=== PATIENT | male | born 2000 | race Two or more races ===

== ENCOUNTER 2021-11-11 18:37 | Emergency (ER) | payer OTHER ==
[2021-11-11 19:17] LABS: BASOPHILS # (AUTO) 0.1 10^3/uL (0.0-0.1); BASOPHILS % (AUTO) 0.8 %; EOSINOPHILS # (AUTO) 0.3 10^3/uL (0.0-0.7); EOSINOPHILS % (AUTO) 5.3 %; HCT - HEMATOCRIT 41.8 % (42.0-52.0); HGB - HEMOGLOBIN 14.6 g/dL (14.0-18.0); LYMPHOCYTES # (AUTO) 2.9 10^3/uL (1.5-3.5); LYMPHOCYTES % (AUTO) 47.4 %; MEAN CORPUSCULAR HEMOGLOBIN 31.2 pg (27.0-31.0); MEAN CORPUSCULAR HGB CONC 34.9 g/dL (32.0-36.0); MEAN CORPUSCULAR VOLUME 89.3 fL (80.0-94.0); MEAN PLATELET VOLUME 9.1 fL (7.4-11.4); MONOCYTES # (AUTO) 0.6 10^3/uL (0.0-1.0); MONOCYTES % (AUTO) 9.1 %; NEUTROPHILS # (AUTO) 2.3 10^3/uL (1.5-6.6); NEUTROPHILS % (AUTO) 37.2 %; PLT - PLATELET COUNT 309 10^3/uL (130-450); RED BLOOD COUNT 4.68 10^6/uL (4.70-6.10); RED CELL DISTRIBUTION WIDTH 12.3 % (12.0-15.0); WHITE BLOOD COUNT 6.2 x10^3/uL (4.8-10.8)
[2021-11-11 19:19] LABS: MUDS CUTOFF CONCENTRATIONS CUTOFF CONC BELOW:
[2021-11-11 19:21] LABS: BILIRUBIN,URINE NEGATIVE (NEGATIVE); GLUCOSE, URINE (UA) NEGATIVE (NEGATIVE); KETONES,URINE (UA) 15 mg/dL (NEGATIVE); LEUKOCYTE ESTERASE, URINE NEGATIVE (NEGATIVE); NITRITE,URINE NEGATIVE (NEGATIVE); OCCULT BLOOD,URINE NEGATIVE (NEGATIVE); PROTEIN,URINE TRACE mg/dL (NEGATIVE); UROBILINOGEN,URINE 0.2 (NORMAL) E.U./dL (NORMAL)
--- NOTE | 2021-11-11 19:26 | ED Physician Documentation ---
PD HPI MHE - Stated complaint Stated Complaint: SI - Chief complaint Chief Complaint: MHE - History obtained from History obtained from: Patient, Family - History of Present Illness Primary symptom: Suicidal ideation, Depression Pain level max: 0 Pain level now: 0 Contributing factors: Work - Additional information Additional information: Patient is a 21-year-old male brought into the emergency department by his . He states that he has been dealing with depression for many years. Has been on Prozac but did not feel like it helped so stopped it on his own. He had been seeing a counselor but did not feel like that helped either so quit going. He states that he recently failed his physical fitness test with the [employer]. He states that he feels he is going to fail his next physical fitness test as well. He states he is also going to fail increasing rank in the [employer]. He states he has been depressed, vague suicidal ideation, no plan. He states that he would not harm himself as he has a family that depends on him. Denies any alcohol or drug use. Patient is active duty [employer] Patient has never been hospitalized for psychiatric care. Patient has no history of suicide attempts Review of Systems Ten Systems: 10 systems reviewed and negative Constitutional: denies: Fever, Chills Nose: denies: Rhinorrhea / runny nose, Congestion Respiratory: denies: Cough GI: denies: Nausea, Vomiting, Diarrhea Skin: denies: Rash Musculoskeletal: reports: Back pain (Chronic, unchanged. No loss of bowel or bladder control.). denies: Neck pain Neurologic: denies: Headache PD PAST MEDICAL HISTORY - Past Medical History Past Medical History: Yes Psych: Depression Musculoskeletal: Other Other Past Medical History: chronic knee pain - Past Surgical History Past Surgical History: No - Allergies Allergies/Adverse Reactions: Allergies Allergy/AdvReac Type Severity Reaction Status Date / Time No Known Drug Allergies Allergy Verified 11/11/21 18:49 - Social History Does the pt smoke?: No Smoking Status: Never smoker Does the pt drink ETOH?: Yes Does the pt have substance abuse?: No - Immunizations Immunizations are current?: Yes PD ED PE NORMAL - Vitals Vital signs reviewed: Yes - General General: Alert and oriented X 3, No acute distress, Well developed/nourished - HEENT HEENT: PERRL, Moist mucous membranes - Neck Neck: Supple, no meningeal sign - Cardiac Cardiac: RRR, Strong equal pulses - Respiratory Respiratory: No respiratory distress, Clear bilaterally - Abdomen Abdomen: Soft, Non tender, Non distended - Derm Derm: Warm and dry - Extremities Extremities: No edema, No calf tenderness / cord - Neuro Neuro: Alert and oriented X 3 - Psych Psych: Normal mood, Normal affect Results - Vitals Vitals: Vital Signs - 24 hr 11/11/21 18:45 Temperature 36.3 C L Heart Rate 82 Respiratory 16 Rate Blood Pressure 140/92 H O2 Saturation 100 Oxygen O2 Source Room air - Labs Labs: Laboratory Tests 11/11/21 11/11/21 11/11/21 19:11 19:11 19:11 WBC 6.2 RBC 4.68 L Hgb 14.6 Hct 41.8 L MCV 89.3 MCH 31.2 H MCHC 34.9 RDW 12.3 Plt Count 309 MPV 9.1 Neut # (Auto) 2.3 Lymph # (Auto) 2.9 [place] # (Auto) 0.6 Eos # (Auto) 0.3 Baso # (Auto) 0.1 Absolute Nucleated RBC 0.00 Nucleated RBC % 0.0 Sodium 137 Potassium 3.8 Chloride 101 Carbon Dioxide 25 Anion Gap 11.0 BUN 16 Creatinine 1.1 Estimated GFR (MDRD) 83 L Glucose 96 Calcium 9.3 Total Bilirubin 0.7 AST 42 ALT 67 H Alkaline Phosphatase 68 Total Protein 7.5 Albumin 4.4 Globulin 3.1 Albumin/Globulin Ratio 1.4 Lipase 33 TSH 2.48 Urine Color Urine Clarity Urine pH Ur Specific [place] Urine Protein Urine Glucose (UA) Urine Ketones Urine Occult Blood Urine Nitrite Urine Bilirubin Urine Urobilinogen Ur Leukocyte Esterase Ur Microscopic Review Urine Culture Comments Salicylates < 6.0 Urine Opiates Screen Ur Oxycodone Screen Urine Methadone Screen Ur Propoxyphene Screen Acetaminophen < 10 L Ur Barbiturates Screen Ur Tricyclics Screen Ur Phencyclidine Scrn Ur Amphetamine Screen U Methamphetamines Scrn U Benzodiazepines Scrn Urine Cocaine Screen U Cannabinoids Screen Ethyl Alcohol < 5.0 SARS-CoV-2 (PCR) 11/11/21 11/11/21 19:15 19:17 WBC RBC Hgb Hct MCV MCH MCHC RDW Plt Count MPV Neut # (Auto) Lymph # (Auto) [place] # (Auto) Eos # (Auto) Baso # (Auto) Absolute Nucleated RBC Nucleated RBC % Sodium Potassium Chloride Carbon Dioxide Anion Gap BUN Creatinine Estimated GFR (MDRD) Glucose Calcium Total Bilirubin AST ALT Alkaline Phosphatase Total Protein Albumin Globulin Albumin/Globulin Ratio Lipase TSH Urine Color YELLOW Urine Clarity CLEAR Urine pH 6.0 Ur Specific [place] >=1.030 H Urine Protein TRACE Urine Glucose (UA) NEGATIVE Urine Ketones 15 H Urine Occult Blood NEGATIVE Urine Nitrite NEGATIVE Urine Bilirubin NEGATIVE Urine Urobilinogen 0.2 (NORMAL) Ur Leukocyte Esterase NEGATIVE Ur Microscopic Review NOT INDICATED Urine Culture Comments NOT INDICATED Salicylates Urine Opiates Screen NEGATIVE Ur Oxycodone Screen NEGATIVE Urine Methadone Screen NEGATIVE Ur Propoxyphene Screen NEGATIVE Acetaminophen Ur Barbiturates Screen NEGATIVE Ur Tricyclics Screen NEGATIVE Ur Phencyclidine Scrn NEGATIVE Ur Amphetamine Screen NEGATIVE U Methamphetamines Scrn NEGATIVE U Benzodiazepines Scrn NEGATIVE Urine Cocaine Screen NEGATIVE U Cannabinoids Screen NEGATIVE Ethyl Alcohol SARS-CoV-2 (PCR) NOT DETECTED PD MEDICAL DECISION MAKING - ED course Complexity details: reviewed results, re-evaluated patient, considered differential, d/w patient, d/w family, d/w hospice consultant ED course: Patient has passive suicidal ideation. No active plan. They would like to speak with telepsychiatry. He is here with his . He does not feel that he would commit suicide but is under stress due to his issues with the [employer]. A telepsychiatry consult was placed when he came to the emergency department, patient will be signed out to the [facility] emergency department physician awaiting the telepsychiatry consult. This document was made in part using voice recognition software. While efforts are made to proofread this document, sound alike and grammatical errors may occur. Departure - Departure Clinical Impression: Depression Qualifiers: Depression Type: unspecified Qualified Code(s): F32.A - Depression, unspecified Condition: Stable
[2021-11-11 19:31] LABS: CLARITY,URINE CLEAR (CLEAR)
[2021-11-11 19:32] LABS: AMPHETAMINE SCREEN,URINE NEGATIVE (NEGATIVE); BARBITURATE SCREEN,UR NEGATIVE (NEGATIVE); BENZODIAZEPINES SCREEN, URINE NEGATIVE (NEGATIVE); COCAINE SCREEN URINE NEGATIVE (NEGATIVE); METHADONE SCREEN, URINE NEGATIVE (NEGATIVE); METHAMPHETAMINES SCREEN, URINE NEGATIVE (NEGATIVE); OPIATE SCREEN, URINE NEGATIVE (NEGATIVE); OXYCODONE SCREEN, URINE NEGATIVE (NEGATIVE); PROPOXYPHENE SCREEN, URINE NEGATIVE (NEGATIVE); THC CANNABINOID SCREEN, URINE NEGATIVE (NEGATIVE); TRICYCLIC ANTIDEPRESSANT,URINE NEGATIVE (NEGATIVE)
[2021-11-11 19:33] LABS: ACETAMINOPHEN < 10 ug/mL (10-30); ALBUMIN 4.4 g/dL (3.2-5.5); ALBUMIN/GLOBULIN RATIO 1.4 (1.0-2.2); ALKALINE PHOSPHATASE 68 IU/L (42-121); ALT ALANINE AMINOTRANSFERASE 67 IU/L (10-60); AST ASPARTATE AMINOTRANSFERASE 42 IU/L (10-42); BILIRUBIN,TOTAL 0.7 mg/dL (0.2-1.0); BUN - BLOOD UREA NITROGEN 16 mg/dL (6-20); CALCIUM 9.3 mg/dL (8.5-10.3); CARBON DIOXIDE - CO2 25 mmol/L (21-32); CHLORIDE 101 mmol/L (101-111); CREATININE 1.1 mg/dL (0.6-1.2); ETOH - ETHANOL < 5.0 mg/dL; GFR - MDRD 83 (>89); GLUCOSE 96 mg/dL (70-100); LIPASE 33 U/L (22-51); POTASSIUM 3.8 mmol/L (3.5-5.0); SALICYLATE < 6.0 mg/dL; SODIUM 137 mmol/L (135-145); TOTAL PROTEIN 7.5 g/dL (6.7-8.2)
--- NOTE | 2021-11-11 23:51 | ED Physician Documentation ---
ED Addendum - Addendum Addendum: Patient signed out to me by Dr. Martinez. Patient is awaiting telepsychiatry evaluation. Dr. Martinez does not feel strongly that the patient needs inpatient psychiatric treatment. Pt has recently been under a lot of stress particularly in regards to his job with the [email or web address] and is concerned he is going to be kicked out. He has had some passive suicidal thoughts It also states that he would not hurt himself because of his family. Patient is requesting discharge. Telepsychiatry is not yet been available to speak to the patient. I spoke to patient and his at the bedside. Patient reports feeling better since being in the emergency department and feels safe returning home. He has no plans to harm himself. Per his there are firearms in the house but she has them locked away. There are no prescription medications. Patient states that he feels motivated to get help because of his . He plans to call the behavioral clinic in the morning for follow-up. He knows that if he feels worse at any time he should call 911, reach out to his or to his command for help. Patient's also states that she feels comfortable with him being at home and is off of work the rest of the week to be with him. Patient has not made any statements to suggest he meets criteria for involuntary detainment. Departure - Departure Disposition: 01 Home, Self Care Clinical Impression: Depression Qualifiers: Depression Type: unspecified Qualified Code(s): F32.A - Depression, unspecified Condition: Stable Instructions: ED Depression Comments: You were evaluated for feelings of depression. You initially agreed to talk to telepsychiatry regarding any recommendations that they may have but would like to go home at this time. Please continue to keep all firearms in any prescription medications are locked away. Please reach out to the [facility] behavioral clinic first thing in the morning for close follow-up. If it anytime you have thoughts of hurting yourself or anyone else or feel unsafe, Please call 911, speak to your or Command to get help. There are many resources that can help you through your current situation. Discharge Date/Time: 11/11/21 23:57
[2021-11-11 23:58] VITALS: BP 132/72
== END 2021-11-11 23:57 | disposition home or self-care (01) ==
LOC: ED 18:37
DX: F32.A Depression, unspecified (principal)
CPT/HCPCS: 36415; 80053; 80306; 80307; 80320; 80329; 81001; 81003; 83690; 84443; 85025; 87086; 99283

== ENCOUNTER 2022-02-21 08:44 | Outpatient (CLI) | payer OTHER ==
--- NOTE | 2022-02-23 09:06 | MRI Report ---
PROCEDURE: BRAIN WO INDICATIONS: MIGRAINE TECHNIQUE: Noncontrast axial T1 spin echo, axial T2 fast spin echo, sagittal and axial FLAIR, coronal T2 fast sp in echo, axial gradient echo, axial diffusion and ADC through the brain. COMPARISON: None. FINDINGS: Image quality: Excellent. CSF Spaces: Basal cisterns are patent. No extra-axial fluid collections. Ventricles are normal in size and shape. Brain: No intracranial masses or hemorrhage. Naranjo/white matter interface is normal. Brainstem appe ars normal. Diffusion-weighted images demonstrate no acute ischemic insult. No chronic ischemic ins ults. Normal intravascular flow voids are present. Skull and face: Calvarium has normal marrow signal. Orbits appear normal. Sinuses: Sinuses demonstrate trace ethmoid mucosal thickening. No fluid levels. IMPRESSION: 1. No acute intracranial process. Reviewed by: Gail Lozano MD on 02/23/2022 9:05 AM PDT Approved by: Gail Lozano MD on 02/23/2022 9:05 AM PDT Station ID: [id number]
== END 2022-02-21 08:45 | disposition home or self-care (01) ==
LOC: DI 08:44
PROVIDERS: ATTEND Physician Assistant
DX: G43.909 Migraine, unspecified, not intractable, without status migrainosus (principal)

== ENCOUNTER 2023-11-09 15:50 | Emergency (ER) | payer OTHER ==
[2023-11-09 17:13] LABS: BASOPHILS % (AUTO) 0.6 %; EOSINOPHILS # (AUTO) 0.7 10^3/uL (0.0-0.7); EOSINOPHILS % (AUTO) 10.2 %; HCT - HEMATOCRIT 44.5 % (42.0-52.0); HGB - HEMOGLOBIN 15.1 g/dL (14.0-18.0); LYMPHOCYTES # (AUTO) 3.1 10^3/uL (1.5-3.5); LYMPHOCYTES % (AUTO) 42.8 %; MEAN CORPUSCULAR HEMOGLOBIN 30.3 pg (27.0-31.0); MEAN CORPUSCULAR HGB CONC 33.9 g/dL (32.0-36.0); MEAN CORPUSCULAR VOLUME 89.2 fL (80.0-94.0); MEAN PLATELET VOLUME 9.1 fL (7.4-11.4); MONOCYTES # (AUTO) 0.6 10^3/uL (0.0-1.0); MONOCYTES % (AUTO) 7.7 %; NEUTROPHILS # (AUTO) 2.8 10^3/uL (1.5-6.6); NEUTROPHILS % (AUTO) 38.6 %; PLT - PLATELET COUNT 357 10^3/uL (130-450); RED BLOOD COUNT 4.99 10^6/uL (4.70-6.10); RED CELL DISTRIBUTION WIDTH 12.5 % (12.0-15.0); WHITE BLOOD COUNT 7.1 x10^3/uL (4.8-10.8)
[2023-11-09 17:28] LABS: ALBUMIN 4.5 g/dL (3.2-5.5); ALBUMIN/GLOBULIN RATIO 1.5 (1.0-2.2); BILIRUBIN,TOTAL 0.5 mg/dL (0.2-1.0); CALCIUM 9.6 mg/dL (8.5-10.3); POTASSIUM 4.2 mmol/L (3.5-4.5); TOTAL PROTEIN 7.5 g/dL (6.4-8.9)
--- NOTE | 2023-11-09 18:47 | ED Physician Documentation ---
PD HPI ABD PAIN - Stated complaint Stated Complaint: - Chief complaint Chief Complaint: Abd Pain - History obtained from History obtained from: Patient - Additional information Additional information: 23-year-old gentleman with history of depression anxiety, active duty in the . For the last 2 days he has had the sensation of incomplete bladder emptying and then when he does go there is nothing in his bladder. He also noted dark urine and some right flank pain. Also mild left testicular pain. No history of renal colic. No concern for STDs. No dysuria. PD PAST MEDICAL HISTORY - Past Medical History Psych: Depression Musculoskeletal: Other - Past Surgical History Past Surgical History: No - Present Medications Home Medications: Ambulatory Orders Medication Instructions Recorded Confirmed Amitriptyline [Elavil] 10 mg PO DAILY PM 11/09/23 11/09/23 Ciprofloxacin HCl [Cipro] 500 mg PO BID #28 tablet 11/09/23 Fluoxetine HCl [Prozac] 20 mg PO DAILY 11/09/23 11/09/23 Oxycodone HCl/Acetaminophen 1 - 2 each PO Q6H PRN #14 tablet 11/09/23 [Percocet 5-325 mg Tablet] SUMAtriptan [Imitrex] 25 mg PO ONCE PRN 11/09/23 11/09/23 buPROPion HCL [Bupropion Xl] 300 mg PO DAILY 11/09/23 11/09/23 - Allergies Allergies/Adverse Reactions: Allergies Allergy/AdvReac Type Severity Reaction Status Date / Time No Known Drug Allergies Allergy Verified 11/09/23 16:19 - Social History Does the pt smoke?: No Smoking Status: Never smoker Does the pt drink ETOH?: Yes Does the pt have substance abuse?: No - Immunizations Immunizations are current?: Yes PD ED PE NORMAL - Vitals Vital signs reviewed: Yes - General General: Alert and oriented X 3, No acute distress - Abdomen Abdomen: Non tender - Male Male : Other (Normal circumcised male genitalia with no testicular tenderness. Normal lie. No masses.) - Back Back: Other (Tender over the right flank) Results - Vitals Vitals: Vital Signs - 24 hr 11/09/23 11/09/23 16:12 19:59 Temperature 36.0 C L 36.7 C Heart Rate 92 95 Respiratory 16 16 Rate Blood Pressure 135/96 H 118/78 O2 Saturation 100 99 Oxygen O2 Source Room air - Labs Labs: Laboratory Tests 11/09/23 11/09/23 11/09/23 16:20 17:09 17:09 WBC 7.1 RBC 4.99 Hgb 15.1 Hct 44.5 MCV 89.2 MCH 30.3 MCHC 33.9 RDW 12.5 Plt Count 357 MPV 9.1 Neut # (Auto) 2.8 Lymph # (Auto) 3.1 Burt # (Auto) 0.6 Eos # (Auto) 0.7 Baso # (Auto) 0.0 Absolute Nucleated RBC 0.00 Nucleated RBC % 0.0 Sodium 138 Potassium 4.2 Chloride 105 Carbon Dioxide 27 Anion Gap 6.0 BUN 9 Creatinine 1.0 Estimated GFR (MDRD) 91 Glucose 95 Calcium 9.6 Total Bilirubin 0.5 AST 34 ALT 69 H Alkaline Phosphatase 60 Total Protein 7.5 Albumin 4.5 Globulin 3.0 Albumin/Globulin Ratio 1.5 Lipase 19 Urine Color YELLOW Urine Clarity CLEAR Urine pH 6.0 Ur Specific [place] 1.025 Urine Protein NEGATIVE Urine Glucose (UA) NEGATIVE Urine Ketones NEGATIVE Urine Occult Blood NEGATIVE Urine Nitrite NEGATIVE Urine Bilirubin NEGATIVE Urine Urobilinogen 0.2 (NORMAL) Ur Leukocyte Esterase NEGATIVE Ur Microscopic Review NOT INDICATED Urine Culture Comments NOT INDICATED - Rads (name of study) CT KUB possibly mild fatty liver otherwise negative. Relevant Findings:: Final report received, EMP independent interpretation of test PD Medical Decision Making - ED course ED course: , With urinary frequency and testicular pain. Differential diagnosis initially thought most likely to be renal colic, subsequently CT KUB was negative for same as was his CBC, CMP, and urinalysis. Subsequently we did a testicular ultrasound which was reported to me by the RDMS is being negative and broaden the differential to include prostatitis and a rectal examination was done with rectal bogginess and tenderness confirming that diagnosis. Departure - Departure Disposition: 01 Home, Self Care Clinical Impression: Abdominal pain Qualifiers: Abdominal location: generalized Qualified Code(s): R10.84 - Generalized abdominal pain Prostatitis Qualifiers: Prostatitis type: acute Qualified Code(s): N41.0 - Acute prostatitis Condition: Good Record reviewed to determine appropriate education?: Yes Instructions: ED Prostatitis Prescriptions: Ciprofloxacin HCl [Cipro] 500 mg PO BID #28 tablet Oxycodone HCl/Acetaminophen [Percocet 5-325 mg Tablet] 1 - 2 each PO Q6H PRN #14 tablet PRN Reason: pain Comments: The CAT scan was basically negative although the radiologist wondered if he might have a fatty liver but that would not cause her current symptomatology. The ultrasound was also negative with no sign of a testicular abnormality and at the end of the day we did a rectal examination which was suggestive of prostatitis. I sent prescriptions for pain medications and the antibiotics to [facility] in [place]. 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 Return for new or worsening symptoms. I am prescribing a short course of narcotic pain medication for you. These are potentially dangerous and addictive medications that should be used carefully. These medications may constipate you. Take an [id number]-[id number] stool softener (docusate) twice daily with plenty of water while taking these medications. If you go 24 hours without a bowel movement, take [id number] miralax, per package instructions. Do not drink or drive while taking these medications. If you received narcotic or sedating medications while in the emergency department, do not drive for 24 hours. Store this medication in a safe, secure place and out of reach of children. It is a violation of federal law to give or sell this medication to another person or to use in a manner other than prescribed. The ED will not refill narcotic prescriptions, including prescriptions lost or stolen. To dispose of unwanted medications: 1. [facility] provides a drop box for medication in pill form only (no liquids) 8:00 am to 4:30 p.m. Wednesday-Wednesday in the lobby of the [facility], [address] [place] [address]. Empty pills into ziplock bag before disposal. Call [phone] for information. [email or web address] is a free service available to all [facility] residents. Go to [email or web address] Note that many narcotic pain relievers also contain Tylenol/acetaminophen. Please ensure that your total dose of acetaminophen from all sources does not exceed 3 g (3000 mg) per day. Forms: PCP List, Activity restrictions
[2023-11-09 18:48] LABS: BILIRUBIN,URINE NEGATIVE (NEGATIVE); GLUCOSE, URINE (UA) NEGATIVE (NEGATIVE); KETONES,URINE (UA) NEGATIVE (NEGATIVE); LEUKOCYTE ESTERASE, URINE NEGATIVE (NEGATIVE); NITRITE,URINE NEGATIVE (NEGATIVE); OCCULT BLOOD,URINE NEGATIVE (NEGATIVE); PROTEIN,URINE NEGATIVE (NEGATIVE); UROBILINOGEN,URINE 0.2 (NORMAL) E.U./dL (NORMAL)
[2023-11-09] MEDS: oxyCODONE 5 MG TABLET PO STA (18:55)
[2023-11-09] MEDS: PHENAZOPYRIDINE 100 MG TABLET PO STA (18:55)
[2023-11-09 18:57] LABS: CLARITY,URINE CLEAR (CLEAR)
--- NOTE | 2023-11-09 19:52 | CT Report ---
PROCEDURE: Abdomen/Pelvis WO INDICATIONS: flank pain TECHNIQUE: A CT scan of the abdomen and pelvis was performed without the use of intravenous contrast. Images we re recorded and evaluated at appropriate window settings. Reformats: coronal and sagittal. For radiat ion dose reduction, the following was used: automated exposure control, adjustment of mA and/or kV ac cording to patient size. COMPARISON: None FINDINGS: Image quality: Diagnostic Lower chest: Lung bases appear unremarkable. Liver: Mild to moderate steatosis. Solid organs are poorly evaluated without IV contrast. Gallbladder and biliary system: Unremarkable, nondilated Pancreas: No ductal dilation Spleen: Nonenlarged Adrenals: No discrete nodules Kidneys: No contour deforming mass or hydronephrosis. Calcified obstructing stone identified. Vessels and lymph nodes: No pathologic lymph nodes by size criteria. No abdominal aortic aneurysm Bowel and peritoneum: No evidence of small bowel obstruction or pathologic ascites There is mild ectasia of the terminal ileum. Body wall: Unremarkable Pelvis: Bladder is underdistended and unremarkable. Prostate is not well eval on this study Bones: No acute or suspicious osseous finding. IMPRESSION: No calcified obstructing stone. No acute abdominopelvic abnormality on this noncontrast CT. Mildly ectatic terminal ileum could represent slow transit for the IC valve, not well evaluated on th is study. No obstruction identified Possible mild to moderate hepatic steatosis. Reviewed by: Emir Castro MD on 11/09/2023 7:50 PM PDT Approved by: Emir Castro MD on 11/09/2023 7:50 PM PDT Station ID: [id number]
[2023-11-09 20:08] VITALS: BP 118/78; O2SAT 99
[2023-11-09] MEDS: CIPROFLOXACIN 250 MG TABLET PO STA (21:44)
[2023-11-09] MEDS: oxyCODONE/ACET 5/325 Prepack 4 PO STA (21:44)
--- NOTE | 2023-11-09 21:56 | Ultrasound Report ---
PROCEDURE: Testicle w/Doppler INDICATIONS: testicular pain TECHNIQUE: Real-time scanning was performed of the scrotum and testicles, with image documentation. Color and p ulse Doppler interrogation was performed of both testicles. COMPARISON: CT abdomen and pelvis 11/09/2023 FINDINGS: Right: Testicle is normal in size at 4.4 x 2.3 x 2.7 cm, and homogenous in echotexture. Epididymis is normal in overall size and hydrocele. No varicoceles. Overlying scrotal skin is normal in thickne ss. Left: Testicle is normal in size at 4.4 x 2.3 x 3.2 cm, and homogeneous in echotexture. Epididymis is normal in overall size and morphology. No hydrocele. No varicoceles. Overlying scrotal skin is n ormal in thickness. Doppler: Color and pulse Doppler demonstrate normal and symmetric arterial flow in both testicles. IMPRESSION: No torsion time of exam. Intermittent torsion cannot be excluded. No sonographic abnormality. Reviewed by: Gail Lozano MD on 11/09/2023 9:54 PM PDT Approved by: Gail Lozano MD on 11/09/2023 9:54 PM PDT Station ID: [id number]
== END 2023-11-09 21:47 | disposition home or self-care (01) ==
LOC: ED 15:50
DX: N41.0 Acute prostatitis (principal); R10.84 Generalized abdominal pain
CPT/HCPCS: 36415; 74176; 76870; 80053; 81003; 83690; 85025; 87491; 87591; 93975; 99284; A9270; 81001; 87086